=== PATIENT | female | born 2000 | race African-American/Black ===

== ENCOUNTER 2020-06-06 17:06 | Emergency (ER) | payer MEDICAID ==
[~2020-06-06] VITALS: Ht 172.7 cm; Wt 86.2 kg
[2020-06-06 17:12] VITALS: BP 116/64
--- NOTE | 2020-06-06 17:15 | NUR ---
Patient in tent for covid precautions
--- NOTE | 2020-06-06 17:17 | NUR ---
19 y/o female from home c/o c/o headache, nausea/vomiting x 1 day. + covid result on 05/29. States approx 11 wks . Denies abd pain. Bowel sounds present x 4 quad. RR even and unlabored, denies cough/sob. Awake and alert. Skin warm, dry, intact. VSS medhx: denies
[2020-06-06] MEDS ORDERED: DOPPLER MC ONE (17:34)
[2020-06-06 17:43] VITALS: BP 116/64
--- NOTE | 2020-06-06 17:43 | NUR ---
Patient discharged with v/s stable. Written and verbal after care instructions given and explained. Patient verbalized understanding. Ambulatory with steady gait. All questions addressed prior to discharge. Advised to follow up with PMD.
== END 2020-06-06 17:43 | disposition home or self-care (01) ==
LOC: MED 17:06
DX: O98.511 Other viral diseases complicating pregnancy, first trimester (principal); U07.1 COVID-19; Z3A.11 11 weeks gestation of pregnancy; Z88.0 Allergy status to penicillin; Z88.1 Allergy status to other antibiotic agents
CPT/HCPCS: 99284